=== PATIENT | male | born 1965 | race Caucasian/White ===

== ENCOUNTER → 2023-01-20 | Outpatient (CLI) | payer OTHER ==
--- NOTE | 2023-01-20 16:17 | US ---
EXAMINATION TYPE: US extremity nonvasc complt LT DATE OF EXAM: 01/20/2023 COMPARISON: NONE CLINICAL INDICATION: Male, 57 years old with history of S86.012A STRAIN OF LEFT ACHILLES TENDON; pt h ad recent xray that showed concerns at left achilles, pt was stepping down from truck and felt strain and pain at the left posterior lower calf area TECHNIQUE: Scanned over the area of the left achilles and also over the patient's area of pain at th e lower post calf. FINDINGS: The left achilles is intact at the attachment; there is thickening at the mid 1/3 with hypoechoic and hypervascularity along the lateral aspect of the left achilles. IMPRESSION: Findings concerning for partial tear of the Achilles tendon. Consider MRI for further lonnie luation.
== END | disposition home or self-care (01) ==
LOC: RADUSWWP 14:37
PROVIDERS: ATTEND Family Medicine
DX: S86.012A Strain of left Achilles tendon, initial encounter (principal)

== ENCOUNTER → 2024-10-11 | Outpatient (CLI) | payer OTHER ==
--- NOTE | 2024-10-11 11:20 | US ---
EXAMINATION TYPE: US abdomen comp/pelvis limited DATE OF EXAM: 10/11/2024 COMPARISON: NONE CLINICAL INDICATION: Male, 59 years old with history of N23 RENAL COLIC; Renal colic. Hx cholecystect yves. Pain x 6 days. Hx fatty liver per pt. TECHNIQUE: Grayscale color Doppler imaging of the abdomen and pelvis. FINDINGS: EXAM MEASUREMENTS: Liver Length: 23.0 cm Gallbladder: Surgically absent CBD: 0.72 cm Spleen: 16.2 cm Right Kidney: 14.6 x 8.2 x6.9 cm Left Kidney: 14.3 x 6.9 x 5.4 cm Pancreas: Obscured Liver: *Enlarged, increased echogenicity and attenuation. Very coarse. Gallbladder: Surgically absent CBD: Mildly dilated. Spleen: *Enlarged. Right Kidney: Prominent size, possibly due to body habitus. *Some hydronephrosis seen. *2 hyperechoic foci seen. #1 is at the lower pole: 0.7 x 0.5 x 0.7 cm. #2 is at the upper pole: 0.6 x 0.8 x 0.6 cm. Left Kidney: Prominent size, possibly due to body habitus. No hydronephrosis. Upper IVC: Limited visibility due to attenuation from the liver Abd Aorta: Obscured by gas Bladder: Appears anechoic. Bilateral Jets Seen Yes *Incidental finding: prostate appears prominent in bladder imaging and measures approximately: 6.6 x 6.4 x 5.8 cm. IMPRESSION: 1. Hepatomegaly at 23.0 cm with severe hepatic steatosis. Appropriate clinical management is advised. 2. Additional splenomegaly at 16.2 cm. Clinically correlate. 3. Bile duct is mildly dilated at 7.2 mm. This may be due to chronic postcholecystectomy status. Jalyn elate with alkaline phosphatase and bilirubin levels. 4. Mild right-sided hydronephrosis. A couple stones are present in the right kidney measuring 7 mm an d 8 mm. Correlate for any right-sided renal colic. 5. Prostatomegaly at 6.6 cm. Correlate with patient's symptoms and PSA values. [facility], Workstation: [email or web address], 10/11/2024 11:18 AM
== END | disposition home or self-care (01) ==
LOC: RADUSWWP 09:56
PROVIDERS: ATTEND Family Medicine
DX: K76.0 Fatty (change of) liver, not elsewhere classified (principal); R16.2 Hepatomegaly with splenomegaly, not elsewhere classified; N13.30 Unspecified hydronephrosis; K83.8 Other specified diseases of biliary tract; N23 Unspecified renal colic; N20.0 Calculus of kidney; N40.0 Benign prostatic hyperplasia without lower urinary tract symptoms
CPT/HCPCS: 76700; 76857

== ENCOUNTER → 2024-12-02 | Outpatient (CLI) | payer OTHER ==
--- NOTE | 2024-12-02 14:14 | US ---
EXAMINATION TYPE: US kidneys/renal and bladder DATE OF EXAM: 12/02/2024 COMPARISON: 10/11/24 CLINICAL INDICATION: Male, 59 years old with history of N13.30 UNSPECIFIED HYDRONEPHROSIS; hx of penny l stones TECHNIQUE: Grayscale imaging of the bilateral kidneys and urinary bladder: FINDINGS: EXAM MEASUREMENTS: Right Kidney: 13.5 x 7.7 x 6.3 cm Left Kidney: 12.8 x 5.0 x 5.0 cm Right Kidney: echogenic focus seen inf pole measuring 0.6 x 0.7 x 0.5cm. The dilated renal pelvis see n previously is not seen today. Left Kidney: No hydronephrosis or masses seen Bladder: wnl Bilateral Jets seen: yes There is no evidence for hydronephrosis at this point in time. No nephrolithiasis is seen. No marcela s are identified. The urinary bladder is anechoic. IMPRESSION: 1. No evidence for obstructive uropathy. Extrarenal pelvis on the right. 2. Right nonobstructing renal calculus. [facility], , 12/02/2024 2:11 PM
== END | disposition home or self-care (01) ==
LOC: RADUSWWP 13:25
PROVIDERS: ATTEND Family Medicine
DX: N20.0 Calculus of kidney (principal); N13.30 Unspecified hydronephrosis
CPT/HCPCS: 76770